=== PATIENT | female | born 1955 | race Two or more races ===

== ENCOUNTER 2018-12-25 20:15 | Emergency (ER) | payer OTHER ==
[~2018-12-25] VITALS: Ht 160 cm; Wt 63.5 kg
[2018-12-25 20:15] VITALS: BP 161/70
[~2018-12-25 20:15] MED LIST: FUROSEMIDE20 M1 ORAL; GLIPIZIDE5 MG ORAL; LEVOFLOXACIN250 MG ORAL
--- NOTE | 2018-12-25 20:15 | NUR ---
ED Nurse Note: Pt was brought in ED by Ambulance from home. C/o lower BS at home which was 28 mg accoding to EMS report at pt's home. And now, BS is 91. Pt is A/O X 4. Romanian speaker only. no family at beside . Vital signs stable at this time. Pt has perm cath at right chest and an incesion at right wrist. F/c in place which was possible inserted 6 days agao in [facility] with yellow color noted. Dr. Hinson at bed side, waiting for orders.
--- NOTE | 2018-12-25 20:44 | NUR ---
ED Nurse Note: Blood and urine sample collected and sent to Lab.
--- NOTE | 2018-12-25 20:50 | NUR ---
call recived from [facility] report given will call back after the lab results
--- NOTE | 2018-12-25 20:58 | Emergency Room Report ---
History of Present Illness General Chief Complaint: General Complaint Source: Patient, EMS (Kevin Hinson MD) Present Illness HPI 63-year-old female presents ED for evaluation. Brought in by EMS. Was altered at home today. Family called 911. Accu-Chek in the 20s. Given D10 and is now more awake. History of diabetes. Family states patient is glipizide. History of end-stage renal disease. Patient is compliant with her dialysis. Patient denies any pain. Denies any fevers or chills. Denies any nausea or vomiting. No other aggravating relieving factors. Denies any other associated symptoms (Kevin Hinson MD) Allergies: Coded Allergies: No Known Allergies (Unverified , 12/25/18) Patient History Past Medical History: DM, renal disease, dialysis Pertinent Family History: none Social History: Denies: smoking, alcohol use, drug use Now: No Immunizations: UTD Reviewed Nursing Documentation: PMH: Agreed; PSxH: Agreed (Kevin Hinson MD) Nursing Documentation-PMH Past Medical History: No History, Except For Hx Hypertension: Yes Hx Diabetes: Yes Hx Dialysis: Yes (Kevin Hinson MD) Review of Systems All Other Systems: negative except mentioned in HPI (Kevin Hinson MD) Physical Exam Vital Signs Date Time Temp Pulse Resp B/P (MAP) Pulse Ox O2 Delivery O2 Flow Rate FiO2 12/25/18 20:07 98.2 68 16 143/67 97 Room Air Sp02 EP Interpretation: reviewed, normal General Appearance: no apparent distress, alert, GCS 15, non-toxic Head: normocephalic, atraumatic Eyes: bilateral eye normal inspection, bilateral eye PERRL ENT: hearing grossly normal, normal pharynx, no angioedema, normal voice Neck: full range of motion, supple/symm/no masses Respiratory: chest non-tender, lungs clear, normal breath sounds, speaking full sentences, other - dialysis catheter on R chest Cardiovascular #1: regular rate, rhythm, no edema Cardiovascular #2: 2+ carotid (R), 2+ carotid (L), 2+ radial (R), 2+ radial (L) , 2+ dorsalis pedis (R), 2+ dorsalis pedis (L) Gastrointestinal: normal bowel sounds, non tender, soft, non-distended, no guarding, no rebound Rectal: deferred Genitourinary: normal inspection, no CVA tenderness Musculoskeletal: back normal, gait/station normal, normal range of motion, non- tender Neurologic: alert, oriented x3, responsive, motor strength/tone normal, sensory intact, speech normal Psychiatric: judgement/insight normal, memory normal, mood/affect normal, no suicidal/homicidal ideation Reflexes: 3+ bicep (R), 3+ bicep (L), 3+ tricep (R), 3+ tricep (L), 3+ knee (R) , 3+ knee (L) Skin: normal color, no rash, warm/dry, well hydrated Lymphatic: no adenopathy (Kevin Hinson MD) Medical Decision Making Diagnostic Impression: Primary Impression: Hypoglycemia Additional Impression: ESRD (end stage renal disease) on dialysis ER Course Please refer to the initial note for the history exam and presentation Initially was reported at the patient was on oral medication for diabetes however the patient denied this Speaking to [facility] also do not have any oral medication for diabetes on their list Nevertheless the patient's glucose decreased again down to 80 requiring further acute intervention With this the decision was made at the patient requires inpatient care Given the insurance coverage patient requested for transfer Patient is stable for that other blood work otherwise appropriate Patient remains awake at this time Last glucose check is at 110 patient improved and stable for transfer Labs Test 12/25/18 20:44 White Blood Count 12.9 K/UL (4.8-10.8) Red Blood Count 2.82 M/UL (4.20-5.40) Hemoglobin 8.2 G/DL (12.0-16.0) Hematocrit 25.9 % (37.0-47.0) Mean Corpuscular Volume 92 FL (80-99) Mean Corpuscular Hemoglobin 29.2 PG (27.0-31.0) Mean Corpuscular Hemoglobin Concent 31.8 G/DL (32.0-36.0) Red Cell Distribution Width 14.6 % (11.6-14.8) Platelet Count 194 K/UL (150-450) Mean Platelet Volume 7.8 FL (6.5-10.1) Neutrophils (%) (Auto) % (45.0-75.0) Lymphocytes (%) (Auto) % (20.0-45.0) Monocytes (%) (Auto) % (1.0-10.0) Eosinophils (%) (Auto) % (0.0-3.0) Basophils (%) (Auto) % (0.0-2.0) Differential Total Cells Counted 100 Neutrophils % (Manual) 88 % (45-75) Lymphocytes % (Manual) 6 % (20-45) Monocytes % (Manual) 4 % (1-10) Eosinophils % (Manual) 0 % (0-3) Basophils % (Manual) 0 % (0-2) Band Neutrophils 2 % (0-8) Platelet Estimate Adequate Platelet Morphology Normal Hypochromasia 1+ Anisocytosis 1+ Urine Color Pale yellow Urine Appearance Clear Urine pH 8 (4.5-8.0) Urine Specific [place] 1.010 (1.005-1.035) Urine Protein 4+ (NEGATIVE) Urine Glucose (UA) 2+ (NEGATIVE) Urine Ketones Negative (NEGATIVE) Urine Blood 5+ (NEGATIVE) Urine Nitrite Negative (NEGATIVE) Urine Bilirubin Negative (NEGATIVE) Urine Urobilinogen Normal MG/DL (0.0-1.0) Urine Leukocyte Esterase 2+ (NEGATIVE) Urine RBC 10-15 /HPF (0 - 2) Urine WBC 5-10 /HPF (0 - 2) Urine Squamous Epithelial Cells Few /LPF (NONE/OCC) Urine Bacteria Few /HPF (NONE) Sodium Level 139 MMOL/L (136-145) Potassium Level 4.0 MMOL/L (3.5-5.1) Chloride Level 103 MMOL/L (98-107) Carbon Dioxide Level 28 MMOL/L (21-32) Anion Gap 8 mmol/L (5-15) Blood Urea Nitrogen 48 mg/dL (7-18) Creatinine 4.1 MG/DL (0.55-1.30) Estimat Glomerular Filtration Rate 11.0 mL/min (>60) Glucose Level 95 MG/DL (74-106) Calcium Level 8.3 MG/DL (8.5-10.1) Total Bilirubin 0.4 MG/DL (0.2-1.0) Aspartate Amino Transf (AST/SGOT) 112 U/L (15-37) Alanine Aminotransferase (ALT/SGPT) 199 U/L (12-78) Alkaline Phosphatase 172 U/L (46-116) Total Protein 7.3 G/DL (6.4-8.2) Albumin 2.5 G/DL (3.4-5.0) Globulin 4.8 g/dL Albumin/Globulin Ratio 0.5 (1.0-2.7) Lipase 280 U/L (73-393) (Yg Alcaraz DO) EKG Diagnostic Results Rate: normal Rhythm: NSR ST Segments: no acute changes ASA given to the pt in ED: No (Kevin Hinson MD) Rate: normal Rhythm: NSR ST Segments: other - Nonspecific ST change (Yg Alcaraz DO) Rhythm Strip Diag. Results EP Interpretation: yes Rhythm: NSR, no PVC's, no ectopy (Kevin Hinson MD) EP Interpretation: yes Rate: 77 Rhythm: NSR, no PVC's, no ectopy (Yg Alcaraz DO) Last Vital Signs Date Time Temp Pulse Resp B/P (MAP) Pulse Ox O2 Delivery O2 Flow Rate FiO2 12/25/18 20:07 98.2 68 16 143/67 97 Room Air Status: improved (Kevin Hinson MD) Status: improved (Yg Alcaraz DO) Disposition: XFER SHT-TRM HOSP Condition: Improved Kevin Hinson MD Dec 25, 2018 20:58 Yg Alcaraz DO Dec 26, 2018 00:59
[2018-12-25 21:03] LABS: HEMATOCRIT 25.9 % (37.0-47.0); HEMOGLOBIN 8.2 G/DL (12.0-16.0); MEAN CORPUSCULAR VOLUME 92 FL (80-99); PLATELET COUNT 194 K/UL (150-450); RED BLOOD COUNT 2.82 M/UL (4.20-5.40); RED CELL DISTRIBUTION WIDTH 14.6 % (11.6-14.8); WHITE BLOOD COUNT 12.9 K/UL (4.8-10.8)
[2018-12-25 21:04] LABS: APPEARANCE,URINE CLEAR; BILIRUBIN, URINE NEGATIVE (NEGATIVE); COLOR,URINE PALE YELLOW; GLUCOSE, URINE (UA) 2+ (NEGATIVE); KETONES,URINE NEGATIVE (NEGATIVE); LEUKOCYTE ESTERASE ,URINE 2+ (NEGATIVE); NITRITE,URINE NEGATIVE (NEGATIVE); PH,URINE 8 (4.5-8.0); PROTEIN,URINE 4+ (NEGATIVE); UROBILINOGEN,URINE NORMAL MG/DL (0.0-1.0)
[2018-12-25 21:10] LABS: ANION GAP 8 mmol/L (5-15); BLOOD UREA NITROGEN 48 mg/dL (7-18); CALCIUM 8.3 MG/DL (8.5-10.1); CARBON DIOXIDE 28 MMOL/L (21-32); CHLORIDE 103 MMOL/L (98-107); CREATININE 4.1 MG/DL (0.55-1.30); SODIUM 139 MMOL/L (136-145)
[2018-12-25 21:14] LABS: ALANINE AMINOTRANSFERASE 199 U/L (12-78); ALBUMIN 2.5 G/DL (3.4-5.0); ALBUMIN/GLOBULIN RATIO 0.5 (1.0-2.7); ALKALINE PHOSPHATASE 172 U/L (46-116); ASPARTATE AMINO TRANSFERASE 112 U/L (15-37); BILIRUBIN,TOTAL 0.4 MG/DL (0.2-1.0)
[2018-12-25] MEDS ORDERED: Dextrose 10%/0.9% SOD CHL 1,000 ML IV SCH (21:15)
--- NOTE | 2018-12-25 21:15 | NUR ---
ED Nurse Note: Meds given as ordered.
[2018-12-25] MEDS ORDERED: cefTRIAXone 1 GM in NS 55 ML IVPB ONE (21:45)
[2018-12-25] MEDS ORDERED: DEXTROSE IV SCH (22:00)
[2018-12-25] MEDS ORDERED: SODIUM CHLORIDE IV SCH (22:00)
--- NOTE | 2018-12-25 23:13 | NUR ---
patient has been accepted at [facility] by dr andino.prn ambulance will be here to transport patient
[2018-12-25 23:15] VITALS: BP 162/72
--- NOTE | 2018-12-25 23:42 | NUR ---
ED Nurse Note: Report given to Celestine/ PATRICIA, Charge nurse/ Corinne. Tele: [phone].
[2018-12-25 23:55] VITALS: BP 153/69
--- NOTE | 2018-12-25 23:55 | NUR ---
TRANSFER TO [facility] /ER: Patient transferred to [facility] /ER as ordered due to Insurance reason. Report given to Corinne/RN/ER. Belongings sent with Pt, Bed side report given to EMS. Pt is A/O X4. VSS. Last BS 110.
--- NOTE | 2018-12-26 11:07 | Cardiology Report ---
APPROVED REPORT EKG Measurement Heart [id number] Normal sinus rhythm Nonspecific T wave abnormality Abnormal ECG
== END 2018-12-25 23:55 | disposition short-term general hospital (02) ==
LOC: EDBD 20:15 → EMR 20:50
DX: E11.649 Type 2 diabetes mellitus with hypoglycemia without coma (principal); I12.0 Hypertensive chronic kidney disease with stage 5 chronic kidney disease or end stage renal disease; E11.22 Type 2 diabetes mellitus with diabetic chronic kidney disease; N18.6 End stage renal disease; Z99.2 Dependence on renal dialysis
CPT/HCPCS: 36415; 80053; 81003; 82962; 83690; 85007; 85025; 93005; 96365; 96375; 99285; J0696

== ENCOUNTER 2020-03-21 21:14 | Observation (INO) | payer MEDICARE, MEDICAID ==
[~2020-03-21] VITALS: Ht 160 cm; Wt 59.9 kg
[2020-03-21 21:25] VITALS: BP 191/78
--- NOTE | 2020-03-21 21:25 | NUR ---
ED Nurse Note: Pt walked into ED from home for c/o bleeding from dialysis access on R forearm. Pt states she went to dialysis today and went home then access started actively bleeding. Dialysis m/w/f. Pt has no other complaints or pain at this time. Pt is aaox4, breathing is normal and unlabored, no cardiac distress. Pt connected to bag machine set up operator. ERMD bedside.
--- NOTE | 2020-03-21 21:30 | NUR ---
ED Nurse Note: Bleeding controlled at this time.
--- NOTE | 2020-03-21 21:41 | Emergency Room Report ---
History of Present Illness General Chief Complaint: General Complaint Source: Patient Present Illness HPI Patient is a 64-year-old female who presents after increased bleeding from her dialysis access. Patient had dialysis approximately 4 PM today. Been having some persistent bleeding from the area. Patient noted to have dialysis Thursday and Thursday. Patient not been having any fever or increased weakness. She denies any other complaints. Patient is followed by Dr. Cain. She reports having a recent eye surgery approximately 3 days ago. Allergies: Coded Allergies: No Known Allergies (Unverified , 12/25/18) COVID-19 Screening Contact w/high risk pt: No Recent Travel to affected area: No Experienced COVID-19 symptoms?: No Patient History Past Medical History: see triage record Now: No Reviewed Nursing Documentation: PMH: Agreed; PSxH: Agreed Nursing Documentation-PMH Past Medical History: No History, Except For Hx Hypertension: Yes Hx Diabetes: Yes Hx Dialysis: Yes Review of Systems All Other Systems: negative except mentioned in HPI Physical Exam Vital Signs Date Time Temp Pulse Resp B/P (MAP) Pulse Ox O2 Delivery O2 Flow Rate FiO2 03/21/20 21:19 Room Air Sp02 EP Interpretation: reviewed, normal General Appearance: normal inspection, well appearing, no apparent distress, alert, GCS 15, Chronically Ill Head: atraumatic Eyes: bilateral eye other - Left eye subconjunctival hemorrhage ENT: normal ENT inspection, hearing grossly normal, normal voice Neck: normal inspection, full range of motion, supple, no bony tend Respiratory: normal inspection, lungs clear, normal breath sounds, no respiratory distress, no retraction, no wheezing Cardiovascular #1: regular rate, rhythm, no edema Gastrointestinal: normal inspection, normal bowel sounds, non tender, soft, no guarding, no hernia Genitourinary: no CVA tenderness Musculoskeletal: normal inspection, back normal, normal range of motion Neurologic: alert, responsive, speech normal, normal inspection Psychiatric: normal inspection, judgement/insight normal, mood/affect normal Skin: other - Small puncture wounds to right upper extremity dialysis access with pulsatile bleeding. Medical Decision Making Diagnostic Impression: Primary Impression: Problem with dialysis access ER Course Patient presented for bleeding from dialysis access. Differential diagnosis include was not limited. Coagulopathy, anemia, thrombocytopenia among others. Because of complexity of patient's case laboratory tests and imaging studies were ordered. Patient was noted to have some initial bruising of blood from dialysis access. Patient's dialysis access was noted to have some initial bleeding and Surgicel was applied top of the wound. Sterile gauze was subsequently applied over the top and patient had resolution of shunt bleeding. Patient was discussed with her primary care physician who will follow the patient as an outpatient. Patient was advised to return for recurrence of bleeding or any other concerns. She was advised to resume her blood pressure medications. This medical record is generated with [employer] transitional care manager software. There may be some transitional care manager discrepancies related to use of this software Labs Test 03/21/20 21:30 White Blood Count 8.9 K/UL (4.8-10.8) Red Blood Count 3.78 M/UL (4.20-5.40) Hemoglobin 11.6 G/DL (12.0-16.0) Hematocrit 38.3 % (37.0-47.0) Mean Corpuscular Volume 101 FL (80-99) Mean Corpuscular Hemoglobin 30.7 PG (27.0-31.0) Mean Corpuscular Hemoglobin Concent 30.3 G/DL (32.0-36.0) Red Cell Distribution Width 16.9 % (11.6-14.8) Platelet Count 215 K/UL (150-450) Mean Platelet Volume 10.4 FL (6.5-10.1) Neutrophils (%) (Auto) 78.9 % (45.0-75.0) Lymphocytes (%) (Auto) 12.8 % (20.0-45.0) Monocytes (%) (Auto) 5.3 % (1.0-10.0) Eosinophils (%) (Auto) 1.0 % (0.0-3.0) Basophils (%) (Auto) 1.9 % (0.0-2.0) Prothrombin Time 10.2 SEC (9.30-11.50) Prothromb Time International Ratio 1.0 (0.9-1.1) Activated Partial Thromboplast Time 26 SEC (23-33) Sodium Level 134 MMOL/L (136-145) Potassium Level 4.7 MMOL/L (3.5-5.1) Chloride Level 93 MMOL/L (98-107) Carbon Dioxide Level 31 MMOL/L (21-32) Anion Gap 10 mmol/L (5-15) Blood Urea Nitrogen 32 mg/dL (7-18) Creatinine 4.8 MG/DL (0.55-1.30) Estimat Glomerular Filtration Rate 9.1 mL/min (>60) Glucose Level 260 MG/DL (74-106) Calcium Level 9.0 MG/DL (8.5-10.1) Total Bilirubin 0.4 MG/DL (0.2-1.0) Aspartate Amino Transf (AST/SGOT) 16 U/L (15-37) Alanine Aminotransferase (ALT/SGPT) 23 U/L (12-78) Alkaline Phosphatase 114 U/L (46-116) Total Protein 9.7 G/DL (6.4-8.2) Albumin 3.4 G/DL (3.4-5.0) Globulin 6.3 g/dL Albumin/Globulin Ratio 0.5 (1.0-2.7) Last Vital Signs Date Time Temp Pulse Resp B/P (MAP) Pulse Ox O2 Delivery O2 Flow Rate FiO2 03/21/20 21:19 Room Air Status: improved Disposition: HOME, SELF-CARE Condition: Stable Frank Mazariegos MD Mar 21, 2020 21:41
[2020-03-21 21:59] LABS: BASOPHILS % (AUTO) 1.9 % (0.0-2.0); HEMATOCRIT 38.3 % (37.0-47.0); HEMOGLOBIN 11.6 G/DL (12.0-16.0); LYMPHOCYTES % (AUTO) 12.8 % (20.0-45.0); MEAN CORPUSCULAR VOLUME 101 FL (80-99); MONOCYTES % (AUTO) 5.3 % (1.0-10.0); NEUTROPHILS % (AUTO) 78.9 % (45.0-75.0); PLATELET COUNT 215 K/UL (150-450); RED BLOOD COUNT 3.78 M/UL (4.20-5.40); RED CELL DISTRIBUTION WIDTH 16.9 % (11.6-14.8); WHITE BLOOD COUNT 8.9 K/UL (4.8-10.8)
[2020-03-21 22:14] LABS: ANION GAP 10 mmol/L (5-15); BLOOD UREA NITROGEN 32 mg/dL (7-18); CARBON DIOXIDE 31 MMOL/L (21-32); CHLORIDE 93 MMOL/L (98-107); CREATININE 4.8 MG/DL (0.55-1.30); POTASSIUM 4.7 MMOL/L (3.5-5.1); SODIUM 134 MMOL/L (136-145)
[2020-03-21 22:18] LABS: ALANINE AMINOTRANSFERASE 23 U/L (12-78); ALBUMIN 3.4 G/DL (3.4-5.0); ALBUMIN/GLOBULIN RATIO 0.5 (1.0-2.7); ALKALINE PHOSPHATASE 114 U/L (46-116); ASPARTATE AMINO TRANSFERASE 16 U/L (15-37); BILIRUBIN,TOTAL 0.4 MG/DL (0.2-1.0)
[2020-03-21 23:15] VITALS: BP 185/76
[2020-03-21] MEDS ORDERED: Miralax 17gm pkt ORAL PRN (23:15)
[2020-03-21] MEDS ORDERED: Nitroglycerin Subl 0.4mg tab SL PRN (23:15)
[2020-03-21] MEDS ORDERED: HydrALAZINE 50mg tab ORAL PRN (23:15)
--- NOTE | 2020-03-21 23:15 | NUR ---
ED Nurse Note: Pt is resting in bed at this time, no acute distress. ERMD aware of pt elevated BP, will carry out medication order.
--- NOTE | 2020-03-22 00:10 | NUR ---
ED Nurse Note: Pt is stable for transfer to [facility] unit at this time, no acute distress noted. Pt aaox4, VSS. Pt dialysis access is not actively bleeding at this time, surgicel and gauze in place over access as ordered by RA. Pt taken to unit via gurney by tech. Pt belongings sent with pt.
--- NOTE | 2020-03-22 00:20 | NUR ---
NURSE NOTES: received patient on bed, awake and verbally responsive. a&o x4 kinyarwanda speaking. with iv line on the left hand, saline lock. with dressing on the right forearm, noted with scant blood. denies any pain or discomfort. no skin issues. dr. lanier put in the admission orders (observation). bed locked and in lowest position. call light and light button within easy reach. reiterated to call and ask for help. will continue plan of care.
[2020-03-22 04:00] VITALS: BP 134/76
[2020-03-22 05:47] LABS: BASOPHILS % (AUTO) 1.6 % (0.0-2.0); EOSINOPHILS % (AUTO) 2.2 % (0.0-3.0); HEMATOCRIT 34.3 % (37.0-47.0); HEMOGLOBIN 11.4 G/DL (12.0-16.0); LYMPHOCYTES % (AUTO) 13.3 % (20.0-45.0); MEAN CORPUSCULAR VOLUME 95 FL (80-99); MONOCYTES % (AUTO) 7.3 % (1.0-10.0); NEUTROPHILS % (AUTO) 75.7 % (45.0-75.0); PLATELET COUNT 229 K/UL (150-450); RED BLOOD COUNT 3.62 M/UL (4.20-5.40); RED CELL DISTRIBUTION WIDTH 15.9 % (11.6-14.8); WHITE BLOOD COUNT 8.7 K/UL (4.8-10.8)
[2020-03-22] MEDS: NovoLOG Insulin Flexpen SUBQ SCH ×2 (06:10→11:30)
[2020-03-22] MEDS ORDERED: GlipiZIDE 5mg tab ORAL SCH (06:30)
--- NOTE | 2020-03-22 07:05 | NUR ---
HAND-OFF: Report given to tish allred rn.
--- NOTE | 2020-03-22 07:25 | NUR ---
NURSE NOTES: received patient in bed. Awake, A/O x4. Malagasy speaking. Patient denies pain at this time. On room air. Right arm dialysis shunt with dry dressing intact, no active bleeding at this time. Bed low and locked, side rails up x2, call light within reach.
[2020-03-22 07:36] LABS: ANION GAP 12 mmol/L (5-15); BLOOD UREA NITROGEN 38 mg/dL (7-18); CALCIUM 8.6 MG/DL (8.5-10.1); CARBON DIOXIDE 27 MMOL/L (21-32); CHLORIDE 95 MMOL/L (98-107); CREATININE 5.5 MG/DL (0.55-1.30); SODIUM 134 MMOL/L (136-145)
[2020-03-22 08:00] VITALS: BP 127/69
[2020-03-22] MEDS ORDERED: Docusate 100mg cap ORAL SCH (09:00)
--- NOTE | 2020-03-22 10:54 | NUR ---
*-* NO INSURANCE INFROMATION IN THE BAR UNABLE TO SEND CLINICALS OR REVIEWS *-*
[2020-03-22 12:00] VITALS: BP 139/54
--- NOTE | 2020-03-22 14:05 | NUR ---
CASE MANAGEMENT: INITIAL REVIEW 64YR OLD FEMALE FROM HOME CC: BLEEDING DIALYSIS SHUNT SI:BLEEDING DIALYSIS SHUNT 98.2 92 26 189/71 90% ON RA NA+ 134 CL-93 BUN 32 CREAT 4.8 BG 260 IS:NORVASC PO X1 IV HYDRALAZINE X1 \: 4E MED SURG UNIT DCP: HOME WHEN STABLE PLAN: BLEEDING HAS NOT STOP NPO
--- NOTE | 2020-03-22 15:30 | Consultation ---
History of Present Illness General Date patient seen: Mar 22, 2020 Reason for Hospitalization: General Complaint Present Illness HPI 64-year-old female with end-stage renal disease on dialysis through a right forearm fistula had dialysis and continued to bleed afterwards. Came to emergency room for evaluation where initial evaluation done by ED physician and potential hemostasis obtained. Was admitted for observation surgery was called to evaluate. Patient was seen patient was evaluated chart was reviewed. In evaluating patient the bedside there is active bleeding noted from the right forearm fistula. No nausea vomiting fever chills. Case discussed with PCP vascular surgery and nurse Allergies: Coded Allergies: No Known Allergies (Unverified , 12/25/18) COVID-19 Screening Contact w/high risk pt: No Recent Travel to affected area: No Experienced COVID-19 symptoms?: No Medication History Scheduled Furosemide* (Lasix*), Unknown Dose ORAL DAILY, (Reported) Glipizide* (Glipizide*), Unknown Dose ORAL BIDAC, (Reported) Levofloxacin (Levofloxacin*), Unknown Dose ORAL DAILY, (Reported) Patient History History Provided By: Patient Healthcare decision maker Resuscitation status Full Code Advanced Directive on File Past Medical/Surgical History Past Medical/Surgical History: (1) Problem with dialysis access Review of Systems Review of Symptoms General ROS: no weight loss or fever Psychological ROS: no depression or mood changes, no memory loss Ophthalmic ROS: no visual changes or eye irritation ENT ROS: no nasal congestion, hearing loss, dizziness Allergy and Immunology ROS: no allergic symptoms or urticaria Hematological and Lymphatic ROS: no swollen glands, unusual bleeding or bruising Endocrine ROS: no polyuria, polydipsia, weight changes, temperature intolerance Respiratory ROS: no cough, shortness of breath, or wheezing Cardiovascular ROS: no chest pain or dyspnea on exertion Gastrointestinal ROS: denies abdominal pain, bright red blood in stool. Musculoskeletal ROS: no myalgias or arthralgias Neurological ROS: no TIA or stroke symptoms Dermatological ROS: no new or changing skin lesions, rashes or pruritis Physical Exam Physical Exam General appearance: alert, cooperative, no distress, appears stated age Head: Normocephalic, without obvious abnormality, atraumatic Eyes: conjunctivae/corneas clear. PERRL, EOM's intact. Fundi benign Throat: Lips, mucosa, and tongue normal. Teeth and gums normal Neck: supple, symmetrical, trachea midline, no adenopathy, thyroid: not enlarged, symmetric, no tenderness/mass/nodules, no carotid bruit and no JVD Lungs: clear to auscultation bilaterally Heart: regular rate and rhythm, S1, S2 normal, no murmur, click, rub or gallop Abdomen: soft, non-tender. Bowel sounds normal. No masses, no organomegaly Extremities: extremities normal, atraumatic, no cyanosis or edema bleeding from right forearm vascular access Pulses: 2+ and symmetric Skin: Skin color, texture, turgor normal. No rashes or lesions Neurologic: Grossly normal Last 24 Hour Vital Signs Date Time Temp Pulse Resp B/P (MAP) Pulse Ox O2 Delivery O2 Flow Rate FiO2 03/22/20 12:00 98.1 80 18 139/54 (82) 93 03/22/20 09:00 Room Air 03/22/20 08:00 98.6 73 18 127/69 (88) 97 03/22/20 04:00 98.6 81 20 134/76 (95) 97 03/22/20 00:36 Room Air 03/22/20 00:10 98.2 81 21 153/55 96 Room Air 03/21/20 23:31 191/78 03/21/20 23:15 98.2 88 21 185/76 95 Room Air 03/21/20 22:09 92 191/78 03/21/20 21:25 98.2 94 26 191/78 94 Room Air 03/21/20 21:25 92 26 Room Air 03/21/20 21:19 98.2 92 26 189/71 (110) 90 Room Air Intake and Output 03/21/20 03/22/20 19:00 07:00 Intake Total 200 ml Balance 200 ml Intake Oral 200 ml # Voids 2 Laboratory Tests Test 03/21/20 21:30 03/22/20 04:25 White Blood Count 8.9 K/UL (4.8-10.8) 8.7 K/UL (4.8-10.8) Red Blood Count 3.78 M/UL (4.20-5.40) L 3.62 M/UL (4.20-5.40) L Hemoglobin 11.6 G/DL (12.0-16.0) L 11.4 G/DL (12.0-16.0) L Hematocrit 38.3 % (37.0-47.0) 34.3 % (37.0-47.0) L Mean Corpuscular Volume 101 FL (80-99) H 95 FL (80-99) Mean Corpuscular Hemoglobin 30.7 PG (27.0-31.0) 31.5 PG (27.0-31.0) H Mean Corpuscular Hemoglobin Concent 30.3 G/DL (32.0-36.0) L 33.2 G/DL (32.0-36.0) Red Cell Distribution Width 16.9 % (11.6-14.8) H 15.9 % (11.6-14.8) H Platelet Count 215 K/UL (150-450) 229 K/UL (150-450) Mean Platelet Volume 10.4 FL (6.5-10.1) H 6.4 FL (6.5-10.1) L Neutrophils (%) (Auto) 78.9 % (45.0-75.0) H 75.7 % (45.0-75.0) H Lymphocytes (%) (Auto) 12.8 % (20.0-45.0) L 13.3 % (20.0-45.0) L Monocytes (%) (Auto) 5.3 % (1.0-10.0) 7.3 % (1.0-10.0) Eosinophils (%) (Auto) 1.0 % (0.0-3.0) 2.2 % (0.0-3.0) Basophils (%) (Auto) 1.9 % (0.0-2.0) 1.6 % (0.0-2.0) Prothrombin Time 10.2 SEC (9.30-11.50) Prothromb Time International Ratio 1.0 (0.9-1.1) Activated Partial Thromboplast Time 26 SEC (23-33) Sodium Level 134 MMOL/L (136-145) L 134 MMOL/L (136-145) L Potassium Level 4.7 MMOL/L (3.5-5.1) 5.0 MMOL/L (3.5-5.1) Chloride Level 93 MMOL/L (98-107) L 95 MMOL/L (98-107) L Carbon Dioxide Level 31 MMOL/L (21-32) 27 MMOL/L (21-32) Anion Gap 10 mmol/L (5-15) 12 mmol/L (5-15) Blood Urea Nitrogen 32 mg/dL (7-18) H 38 mg/dL (7-18) H Creatinine 4.8 MG/DL (0.55-1.30) H 5.5 MG/DL (0.55-1.30) H Estimat Glomerular Filtration Rate 9.1 mL/min (>60) 7.8 mL/min (>60) Glucose Level 260 MG/DL (74-106) H 164 MG/DL (74-106) H Calcium Level 9.0 MG/DL (8.5-10.1) 8.6 MG/DL (8.5-10.1) Total Bilirubin 0.4 MG/DL (0.2-1.0) Aspartate Amino Transf (AST/SGOT) 16 U/L (15-37) Alanine Aminotransferase (ALT/SGPT) 23 U/L (12-78) Alkaline Phosphatase 114 U/L (46-116) Total Protein 9.7 G/DL (6.4-8.2) H Albumin 3.4 G/DL (3.4-5.0) Globulin 6.3 g/dL Albumin/Globulin Ratio 0.5 (1.0-2.7) L Height (Feet): 5 Height (Inches): 3.00 Weight (Pounds): 132 Medications Current Medications Medications (Trade) Dose Ordered Sig/Magi Route PRN Reason Start Time Stop Time Status Last Admin Dose Admin Acetaminophen (Tylenol) 650 mg Q4H PRN ORAL Mild Pain (Pain Scale 1-3) 03/21/20 23:15 04/20/20 23:14 Acetaminophen (Tylenol) 650 mg Q4H PRN ORAL Temp >100.5 03/21/20 23:15 04/20/20 23:14 Clonidine HCl (Catapres tab) 0.4 mg QHS ORAL 03/22/20 21:00 06/20/20 20:59 Dextrose (Dextrose 50%) 25 ml Q30M PRN IV Hypoglycemia 03/21/20 23:15 06/19/20 23:14 Dextrose (Dextrose 50%) 50 ml Q30M PRN IV Hypoglycemia 03/21/20 23:15 06/19/20 23:14 Docusate Sodium (Colace) 100 mg EVERY 12 HOURS ORAL 03/22/20 09:00 04/21/20 08:59 03/22/20 09:59 Hydralazine HCl (Apresoline) 50 mg Q4HR PRN ORAL For High Blood Pressure 03/21/20 23:15 06/19/20 23:14 Insulin Aspart (NovoLOG) BEFORE MEALS AND HS SUBQ 03/22/20 06:30 06/20/20 06:29 Nitroglycerin (Ntg) 0.4 mg Q5M X 3 DOSES PRN SL Prn Chest Pain 03/21/20 23:15 04/20/20 23:14 Polyethylene Glycol (Miralax) 17 gm HSPRN PRN ORAL Constipation 03/21/20 23:15 04/20/20 23:14 Sevelamer Carbonate (Renvela) 1,600 mg TIAC ORAL 03/22/20 06:30 06/20/20 06:29 03/22/20 12:10 Temazepam (Restoril) 15 mg HSPRN PRN ORAL Insomnia 03/21/20 23:15 03/28/20 23:14 Assessment/Plan Problem List: (1) Hemorrhage of arteriovenous fistula Assessment & Plan: 64-year-old female with right forearm hemodialysis access fistula recently used and continues to bleed. On evaluation after admission identified to have active bleeding pulsatile almost. Seen by myself and discussed vascular surgery and primary team. A Prolene suture was placed and hemostasis obtained. Plan for discharge. Discussed vascular surgery who will follow patient as an outpatient for removal of suture and fistula management. Thank you for allowing participate in patient's care. ICD Codes: T82.838A - Hemorrhage due to vascular prosthetic devices, implants and grafts, initial encounter SNOMED: 718253047 (2) Problem with dialysis access ICD Codes: T82.898A - Other specified complication of vascular prosthetic devices, implants and grafts, initial encounter SNOMED: [id number] Blair Sanford Mar 22, 2020 15:30
--- NOTE | 2020-03-22 15:32 | Operative Note - PDOC ---
Operative Note Operative Note Date of Operation/Procedure: Mar 22, 2020 Pre-op Diagnosis: Hemorrhage from AV fistula right forearm Procedure: Hemostasis of right forearm AV fistula hemorrhage Post-op Diagnosis: same as pre-op Surgeon: Blair Sanford MD Specimen: none Complications: none Condition: stable Estimated Blood Loss: minimal Drains: none Implant(s) used?: No Indications for Procedure Please see consult note. Description of Procedure Patient with acuteActive bleeding from right forearm AV fistula after use. Prolonged for over 12 hours. Hemostasis obtained by placing a [id number] 5 -0 Prolene suture at the bedside after wound was prepped draped and sent surgical fashion. Hemostasis obtained. Dressings applied. Patient tolerated well. We will plan on discharge with evaluation by vascular surgery as an outpatient for removal of suture and fistula management. Blair Sanford Mar 22, 2020 15:32
--- NOTE | 2020-03-22 17:20 | NUR ---
NURSE NOTES: Patient discharged. with [facility]. VSS. Patient in stable condition. Belongings list verified. IV site and ID band removed. Addendum: 03/22/20 at 1826 by Ken Muñoz RN Patient discharged with friend Shanae Funez (call or contact centre manager file).
--- NOTE | 2020-03-22 17:45 | History and Physical Report ---
DATE OF ADMISSION: 03/21/2020 CHIEF COMPLAINT AND REASON FOR HOSPITALIZATION: The patient is a 64-year-old lady admitted with bleeding from dialysis fistula right arm. HISTORY OF PRESENT ILLNESS: The patient had dialysis on 03/21/2020 and postdialysis developed a moderate amount of bleeding. She was seen in the ER and appeared to have a moderate amount of bleeding, stopped initially with pressure and local care, but bleeding recurred and felt that she should be watched for observation. This morning when I saw her and removed the dressing, there is a moderate amount of bleeding and that seems like a skin tear adjacent to the [place] vein fistula in the right forearm. PAST MEDICAL HISTORY: Patient has long-standing insulin-dependent diabetes, severe hypertension, end-stage renal disease, and diabetic retinopathy. PRIOR SURGERIES: AV fistula right arm, cataracts in both eyes, and laser for diabetic retinopathy. HABITS: She is a nondrinker and nonsmoker. No use of illicit drugs. SOCIAL HISTORY: She is from her for 30 years. FAMILY HISTORY: Her mother had diabetes. She has 4 children, three of whom have diabetes. SYSTEM REVIEW: HEAD, EYES, EARS, NOSE, AND THROAT: She has some diabetic retinopathy with blurred vision. Hearing is good. ENDOCRINE: Long-standing diabetes. No thyroid disease. PULMONARY: No asthma, TB, or chronic cough. There is occasional allergic rhinitis. CARDIAC: History of severe hypertension. No angina or AL. No definite CHF. GASTROINTESTINAL: Occasional nausea and poor appetite, but this has improved lately. Bowel movements are normal. MUSCULOSKELETAL: No deforming arthritis. NEUROLOGIC: She has some peripheral neuropathy. PHYSICAL EXAMINATION: GENERAL: Patient is alert lady, in no acute distress. VITAL SIGNS: Blood pressure was as high as 191/78, currently 127/69, temperature 98.6, pulse 73, respirations 18. HEAD, EYES, EARS, NOSE, AND THROAT: Sclerae are nonicteric. Ocular motions intact in all directions. Oral mucosa moist. NECK: No adenopathy or thyroid enlargement. LUNGS: Clear. HEART: Regular rhythm. No murmur. ABDOMEN: Soft. No organomegaly or masses. EXTREMITIES: No edema, cyanosis, or clubbing. There is a right arm AV fistula with a good thrill. When the dressing is removed on the right forearm, there is some bright red bleeding and it looks like a skin tear about 3 mm and dressing is reapplied. LABORATORY DATA: Stable with a most recent hemoglobin of 11.4 and platelets of 229. IMPRESSION: 1. Complication of dialysis fistula right arm with arterial bleeding, possible need for surgical procedure. 2. End-stage renal disease. 3. Hypertensive heart disease. 4. Insulin-dependent diabetes with diabetic retinopathy, neuropathy, and nephropathy. PLAN: Patient will be watched closely. Should have surgical consultation. Watch her for further bleeding and we will make assessments after seen by Surgery. Nicolas Cain M.D. DR: JEFF JOB#: [id number] CC:
[2020-03-22] MEDS ORDERED: cloNIDine 0.2mg Tab ORAL SCH (21:00)
--- NOTE | 2020-03-28 09:59 | Coder Physician Query ---
Clarification is required for compliance, coding accuracy, and to reflect severity of illness for this patient Dear Dr. Sanford Date: 03/28/20 [employer]/CDS Name: ALICIA De Santiago Operative Note Date of Operation/Procedure: Mar 22, 2020 Pre-op Diagnosis: Hemorrhage from AV fistula right forearm Procedure: Hemostasis of right forearm AV fistula hemorrhage Post-op Diagnosis: same as pre-op Surgeon: Blair Sanford MD Specimen: none Complications: none Condition: stable Estimated Blood Loss: minimal Drains: none Implant(s) used?: No Indications for Procedure Please see consult note. Description of Procedure Patient with acuteActive bleeding from right forearm AV fistula after use. Prolonged for over 12 hours. Hemostasis obtained by placing a [id number] 5 -0 Prolene suture at the bedside after wound was prepped draped and sent surgical fashion. Hemostasis obtained. Dressings applied. Patient tolerated well. We will plan on discharge with evaluation by vascular surgery as an outpatient for removal of suture and fistula management. Please respond to the following question: Please indicate what was sutured? ( ) Artery ( XX) Skin ( ) Vein ( ) Other: Physician signature Date Please also document in your Progress Notes and/or Discharge Summary and indicate if the condition was present on admission. SANTIAGO
== END 2020-03-22 17:20 | disposition home or self-care (01) ==
LOC: EMR 21:51 → 4E 22:03 → CANBEDREQ 22:50 → EDBEDREQ 23:01 → EDBEDREQSVC 23:02 → EDBEDREQ 23:02
DX: T82.838A Hemorrhage due to vascular prosthetic devices, implants and grafts, initial encounter (principal); E11.22 Type 2 diabetes mellitus with diabetic chronic kidney disease; I12.0 Hypertensive chronic kidney disease with stage 5 chronic kidney disease or end stage renal disease; N18.6 End stage renal disease; E11.319 Type 2 diabetes mellitus with unspecified diabetic retinopathy without macular edema; E11.40 Type 2 diabetes mellitus with diabetic neuropathy, unspecified; Z99.2 Dependence on renal dialysis; X58.XXXA Exposure to other specified factors, initial encounter; Y92.9 Unspecified place or not applicable
CPT/HCPCS: 12031; 36415 ×2; 80048; 80053; 82962; 85025 ×2; 85610; 85730; 86850; 86900; 86901; 87081 ×3; 96374; 99284; G0378 ×2; J0360; J1815